=== PATIENT | female | born 1975 | race Caucasian/White ===

== ENCOUNTER 2024-02-09 08:36 | Emergency (ER) | payer BC, SELFPAY ==
[2024-02-09 08:49] VITALS: BP 158/106
--- NOTE | 2024-02-09 09:12 | ED.GENMED ---
History of Present Illness
General
Chief Complaint: Abdominal Pain
Source: patient
Exam Limitations: none
Time Seen by Provider: 02/09/24 09:09
Nursing documentation reviewed up to this point in time: agreed with
History of Present Illness
History of Present Illness:
Patient is a 48 year old female presenting with 2 weeks of intermittent upper abdominal pain with acute worsening yesterday. Patient first noticed intermittent upper abdominal pain about 2 weeks ago but states that yesterday pain became much more
severe and was constant throughout the entirety of the day. This has been associated with nausea, vomiting, and diarrhea. Some chills and night, but denies any known fevers. Patient denies any hematochezia, melena, or hematemesis. Patient denies
any urinary symptoms. No chest pain or shortness of breath. Patient has been unable to keep any food or liquid down.
Patient did recently start Wellbutrin about 4 weeks ago and at first was wondering if this was related. She did speak with her primary care provider who instructed her to continue taking Wellbutrin but gave her Zofran.
Patient denies any prior abdominal surgeries. Last menstrual period was approximately 3 weeks ago
Review of Systems
Review of Systems
Allergies reviewed?: Yes
All Other Systems: ROS reviewed and negative except as documented in HPI and ROS
Phy Exam
Physical Exam
Physical Exam:
Vitals: Hypertensive, otherwise vital signs stable. Afebrile
General: Patient is well appearing, no acute distress. Nontoxic appearing
Skin: Warm and dry, no rashes or lesions
Head: Normocephalic, atraumatic
Eyes: Sclera nonicteric. EOMs intact. No nystagmus.
Throat: Protecting airway
Neck: Normal ROM, no cervical spine tenderness, no meningismus
Cardiac: Regular rate and rhythm, no murmurs.
Pulm: Normal respiratory effort, no wheezes, rales, rhonchi heard on exam.
Abdomen: Abdomen soft. Mild tenderness across upper abdomen RUQ >LUQ. Negative Hemphill sign. No CVA tenderness
Extremities: No evidence of cyanosis or edema. Great distal pulse
Neuro: AAOx3. CN II-XII intact. No focal neurologic deficits.
Psychiatric: Normal affect.
Course
Orders/Labs/Results
Orders:
Orders
02/09/24 09:24
0.9% Sodium Chloride 1000 ml [Nss] 1,000 ml IV BOLUS
Ketorolac [Toradol] 15 mg IV NOW STA
Ondansetron Injectable [Zofran] 4 mg IV NOW STA
02/09/24 09:25
Test Result ONCE
02/09/24 09:26
US Abdomen Complete/Upper Urgent
Comment:
Reason For Exam: Upper abdominal pain, +N,+V
02/09/24 09:57
Urinalysis Reflex To Culture Urgent
Date Specimen was Collected: 02/09/24
Time Specimen was Collected: 09:30
Urine Microscopic Reflex Cult Urgent
02/09/24 10:10
Complete Blood Count/With Diff Urgent
Comprehensive Metabolic Panel Urgent
HCG, Serum Qualitative Screen Urgent
Lipase Urgent
Abnormal Lab Results
02/09/240824
09:57 10:10
MCH 33.4 H pg
(27.0-31.0)
Abs Immat Gran (auto) 0.1 H 10^3/uL
(0-0.05)
Absolute Monos (auto) 1.0 H 10^3/uL
(0.1-0.6)
Immature Gran % 0.6 H %
(0-0.5)
Lymphocytes % 19.4 L %
(20.5-51.1)
Monocytes % 11.5 H %
(1.7-9.3)
Sodium 132 L mmol/L
(135-145)
Glucose 112 H mg/dl
(70-99)
Total Bilirubin 1.6 H mg/dl
(0.2-1.3)
AST 60 H U/L
(14-36)
Urine Ketones Trace A
(Negative)
Urine Bilirubin 1+ A
(Negative)
Leukocyte Esterase Rfl Trace A
(Negative)
Urine Bacteria (Reflex) Few A
(Negative)
02/09/24 10:10
02/09/24 10:10
Vital Signs
Initial and Last Documented VS:
Initial Vital Signs
Temp Pulse Resp BP Pulse Ox
98.7 F 101 18 158/106 100
02/09/24 08:49 02/09/24 08:49 02/09/24 08:49 02/09/24 08:49 02/09/24 08:49
Last Documented Vital Signs
Temp Pulse Resp BP Pulse Ox
98.7 F 101 18 158/106 100
02/09/24 08:49 02/09/24 08:49 02/09/24 08:49 02/09/24 08:49 02/09/24 08:49
MDM/Problems Addressed
Differential Diagnosis Includes:
Not limited to: Biliary colic, cholecystitis, choledocholithiasis, pancreatitis, gastritis, colitis, GERD, kidney stone
MDM/Problems Addressed:
48-year-old female presenting with a few weeks of upper abdominal pain and associated nausea, vomiting, diarrhea. No fevers. No risk factors for bacterial diarrhea. Patient hypertensive on arrival, otherwise vital signs are stable. Physical exam
as above. Patient very well-appearing, in no apparent distress. She does have very mild tenderness across her upper abdomen with a negative Hemphill sign. Patient is perfusing well. Labs noted. No leukocytosis. Mild elevation in both total
bilirubin AST noted. Lipase normal. Urine does not appear infected. Patient was given Zofran, Toradol, a liter of fluids. Patient states pain much improved following Toradol. An ultrasound of the abdomen was obtained which shows no acute
abnormalities. There was an incidental finding of a cyst on her left kidney for which patient was made aware. Patient was given report of ultrasound to have followed up with primary care.
Given symptoms have been ongoing for a few weeks and patient is afebrile with no leukocytosis �low suspicion for acute infectious process in abdomen. Suspect likely a viral gastroenteritis. On reassessment�patient's abdomen remains soft and very
mildly diffusely tender. No indication for admission. Patient otherwise stable for discharge. Lengthy discussion with patient regarding close return precautions�patient is comfortable this plan. She will follow-up with her primary care provider.
Patient seen with attending physician.
Chronic conditions affecting care:
N/A
Acute Exacerbation and/or Progression of Chronic Illness:
N/A
*Radiology
Radiology exam reviewed: preliminary read by ED provider and radiology read reviewed
*Pulse Oximetry
Patient hypoxic: no
*EKG
Interpreted by ED Provider?: NA
*Supervisor Vat House Interpretation
Rate: Supervisor Vat House- N/A
*Critical Care Note
Total Time (30-74mins, 75-104mins- exclusive of procedures): Not Applicable
ED Attending Note
-
Portions of this chart may have been created with voice recognition software.� Occasional wrong word or��sound alike� substitutions may have occurred due to the inherent limitations of voice recognition software.
Discharge Plan
Departure
Patient Disposition: Home (Routine Discharge)
Date of Disposition: 02/09/24
Time of Disposition: 11:39
Patient with high blood pressure during this ER visit?: Yes
Condition: Good
Covid-19: Not Applicable
Discharge Problem:
Abdominal pain, Nausea vomiting and diarrhea
Instructions: Nausea and Vomiting, Adult (DC), Abdominal Pain, BLOOD PRESSURE
Referrals:
Ana Paula Doherty CRNP [Family Provider] - Follow up in 2-3 days
Activity Restrictions/Additional Instructions:
RETURN TO THE EMERGENCY DEPARTMENT WITH ANY FEVERS, CHILLS, SEVERE/PERSISTENT ABDOMINAL PAIN, INTRACTABLE NAUSEA/VOMITING, LOSS OF APPETITE, WORSENING IN CURRENT SYMPTOMS, OR ANY OTHER CONCERNS
-As discussed/there was a incidental finding of a cyst on your left kidney found today on ultrasound. You should ensure that you have this follow-up with your primary care doctor for further monitoring if needed.
-You can take Zofran at home as needed for persistent nausea. You can take Motrin as needed for any discomfort. It is important to stay well-hydrated. I would recommend a bland diet over the next 2 days and slowly advance as tolerated.
-You should follow-up with your primary care provider in a few days for further evaluation/management as are improving.
Monitor your symptoms closely and return to the emergency department with any acute worsening/new symptoms.
Interventions
Interventions:
*Risk Screen - Suicide Last Done: 02/09/24 08:49
*General Assessment Last Done: 02/09/24 08:49
*Neglect/Abuse Screening Last Done: 02/09/24 08:49
ED- Fall Risk Assessment Last Done: 02/09/24 09:39
*ED COVID-19 Vaccine History Last Done: 02/09/24 09:39
CY-Omarog-Enemxqajmw Assessment Last Done: 02/09/24 09:40
Discharge Date and Time
Print Language: AMHARIC
[2024-02-09 09:38] VITALS: BMI 23.6
[2024-02-09] MEDS: NSS 1000 IV (10:12)
[2024-02-09] MEDS: TORADOL 15 MG IV (10:12)
[2024-02-09] MEDS: ZOFRAN 4 MG IV (10:13)
[2024-02-09 10:24] LABS: Urine Albumin Trace (Neg - Trace); Urine Bilirubin 1+ (Negative); Urine Character Clear (Clear); Urine Color Yellow; Urine Glucose Negative (Negative); Urine Ketone Trace (Negative); Urine Leukocyte Trace (Negative); Urine Nitrite Negative (Negative); Urine Occult Blood Negative (Negative); Urine Specific Gravity 1.025 (<1.030); Urine Urobilinogen 1+ (Neg - 1+)
[2024-02-09 10:30] LABS: % Basophils 0.6 % (0-2); % Eosinophils 0.7 % (0-6); % Immature Granulocytes 0.6 % (0-0.5); % Lymphocytes 19.4 % (20.5-51.1); % Monocytes 11.5 % (1.7-9.3); % Neutrophils 67.2 % (42.2-75.2); Absolute Basophils 0.1 10^3/uL (0-0.2); Absolute Eosinophils 0.1 10^3/uL (0-0.7); Absolute Immature Granulocytes 0.1 10^3/uL (0-0.05); Absolute Lymphocytes 1.7 10^3/uL (1.2-3.4); Hemoglobin 14.8 g/dL (12.0-16.0); Mean Corp Hgb Conc. 36.1 g/dL (33.0-37.0); Mean Corpuscular Hgb 33.4 pg (27.0-31.0); Mean Corpuscular Volume 92.6 fL (81.0-99.0); Mean Platelet Volume 9.1 fL (7.4-10.4); Nucleated Red Blood Cells % 0 %; Platelet Count 291 10^3/uL (130-400); Red Blood Cell Count 4.43 10^6/uL (4.20-5.40); Red Cell Dist. Width 12.1 % (11.5-14.5); White Blood Cell Count 8.9 10^3/uL (4.8-10.8)
[2024-02-09 10:32] LABS: Urine Squamous Cell 16-20 /LPF (Few)
[2024-02-09 10:33] LABS: Urine Bacteria Few (Negative); Urine Red Blood Cell 0-2 /HPF (0-2); Urine White Cell 0-2 /HPF (0-5)
[2024-02-09 10:39] LABS: HCG, Serum Qualitative Screen Negative
[2024-02-09 10:44] LABS: AST (SGOT) 60 U/L (14-36); Albumin 4.3 g/dl (3.5-5.0); Alkaline Phosphatase 87 U/L (38-126); Blood Urea Nitrogen 8 mg/dl (7-17); Calcium 9.6 mg/dl (8.4-10.2); Carbon Dioxide 24 mmol/L (22-30); Estimated Creatinine Clearance 79 ml/min; Glucose 112 mg/dl (70-99); Potassium 3.7 mmol/L (3.5-5.1); Total Bilirubin 1.6 mg/dl (0.2-1.3); Total Protein 7.3 g/dl (6.3-8.2); eGFR > 60.00
[2024-02-09 10:45] LABS: ALT (SGPT) 24 U/L (0-35); Chloride 102 mmol/L (98-107); Lipase 60 U/L (23-300); Sodium 132 mmol/L (135-145)
[2024-02-09 11:49] VITALS: BP 130/89
== END 2024-02-09 12:08 | disposition home or self-care (01) ==
LOC: EMR 08:36
PROVIDERS: Physician Assistant; EMERGENCY PHYSICIAN Emergency Medicine; FAMILY PHYSICIAN Nurse Practitioner Adult Health
DX: R11.2 Nausea with vomiting, unspecified (principal); R19.7 Diarrhea, unspecified; R10.10 Upper abdominal pain, unspecified; I10 Essential (primary) hypertension
CPT/HCPCS: 99284; 96374; 96375; 76700; 80053; 81003; 81015; 83690; 84703; 85025